=== PATIENT | female | born 1990 | race Two or more races ===

== ENCOUNTER 2018-07-03 19:36 | Emergency (ER) | payer OTHER ==
[~2018-07-03] VITALS: Ht 170.2 cm; Wt 104.3 kg
== END 2018-07-03 21:51 | disposition home or self-care (01) ==
LOC: ER 19:36
DX: M79.89 Other specified soft tissue disorders (principal)

== ENCOUNTER 2018-08-06 09:27 | Emergency (ER) | payer OTHER ==
[~2018-08-06] VITALS: Ht 170.2 cm; Wt 88.5 kg
== END 2018-08-06 14:02 | disposition home or self-care (01) ==
LOC: ER 09:27
DX: N93.8 Other specified abnormal uterine and vaginal bleeding (principal)

== ENCOUNTER 2018-08-07 09:07 | Emergency (ER) | payer OTHER ==
[~2018-08-07] VITALS: Ht 170.2 cm; Wt 101.6 kg
== END 2018-08-07 14:51 | disposition home or self-care (01) ==
LOC: ER 09:07
DX: O20.0 Threatened abortion (principal)

== ENCOUNTER 2020-05-29 12:46 | Emergency (ER) | payer OTHER ==
[~2020-05-29] VITALS: Ht 170.2 cm; Wt 117.5 kg
== END 2020-05-29 16:59 | disposition home or self-care (01) ==
LOC: ER 12:46
DX: R42 Dizziness and giddiness (principal); R11.0 Nausea; R10.2 Pelvic and perineal pain; Z33.1 Pregnant state, incidental; Z03.818 Encounter for observation for suspected exposure to other biological agents ruled out

== ENCOUNTER 2020-05-31 15:38 | Emergency (ER) | payer OTHER ==
[~2020-05-31] VITALS: Ht 170.2 cm; Wt 117.5 kg
== END 2020-05-31 20:42 | disposition home or self-care (01) ==
LOC: ER 15:38
DX: O20.0 Threatened abortion (principal)

== ENCOUNTER 2021-07-26 21:33 | Inpatient (IN) | payer OTHER ==
[~2021-07-26] VITALS: Ht 170.2 cm; Wt 115.2 kg
== END 2021-07-30 18:10 | disposition home or self-care (01) | DRG 446 ==
LOC: ER 21:33 → SEC-K 07-27 11:33 → MEDI 07-27 11:33
PROVIDERS: ADMIT Specialist; ATTEND Specialist
PROC: BF37ZZZ Magnetic Resonance Imaging (MRI) of Pancreas (ICD-10-PCS; principal; 2021-07-27)
DX: K80.62 Calculus of gallbladder and bile duct with acute cholecystitis without obstruction (principal); R10.13 Epigastric pain; K29.00 Acute gastritis without bleeding; Z20.822 Contact with and (suspected) exposure to COVID-19

== ENCOUNTER 2022-02-20 23:02 | Emergency (ER) | payer OTHER ==
[~2022-02-20] VITALS: Ht 170.2 cm; Wt 60.3 kg
== END 2022-02-21 | disposition home or self-care (01) ==
LOC: ER 23:02
DX: K80.20 Calculus of gallbladder without cholecystitis without obstruction (principal)

== ENCOUNTER 2022-05-08 23:33 | Emergency (ER) | payer OTHER ==
[~2022-05-08] VITALS: Ht 170.2 cm; Wt 103.4 kg
== END 2022-05-09 00:23 | disposition left against medical advice (07) ==
LOC: ER 23:33
DX: Z53.21 Procedure and treatment not carried out due to patient leaving prior to being seen by health care provider (principal)